=== PATIENT | female | born 1945 | race Caucasian/White ===

== ENCOUNTER 2016-12-09 02:33 | Observation (INO) ==
--- NOTE | 2016-12-09 03:14 | Emergency Department Note ---
Disposition Clinical Impression: Hypertension, Unsteady gait, Vertigo, Chest pain Disposition: Admitted As Inpatient Condition: Fair Time of Disposition: 05:51 Dizziness HPI - General Chief Complaint: ED General Medical Stated Complaint: dizziness Time Seen by Provider: 12/09/16 02:41 Source: patient Mode of arrival: ambulatory Limitations: no limitations Nursing Notes Reviewed: Yes Vital Signs Reviewed: Yes - History of Present Illness HPI Narrative: Patient presents to the ED with the chief complaint of dizziness. Patient reports that for the last 2 weeks she has been having dizziness. She states that she has had dizziness before and was prescribed Antivert with good relief. States she has not needed any in a while. Reports that her blood pressure has been running high lately with the systolic pressure being in the 160s. She went to refill her lisinopril last week and the pharmacist checked her blood pressure and it was elevated at 160/90. They ended up calling her primary care physician who increased her lisinopril to 20 mg daily. She states her blood pressures have now been in the 130s in the 140s. She reports that she is still been getting dizzy spells where she feels like she is going to pass out and also the room is spinning. States it happens whenever she moves her head too quickly or when she lays down too fast. She reports tonight she laid down and started feeling a very intense spinning sensation. She states that this made her very nervous and she got up and checked her blood pressure and it was in the 140s. She then states that she started developing some left superior anterior chest tightness that radiated into her left scapular area that has been intermittent since then. She did get nauseated but had no vomiting, or changes in vision. No headache or fever. No rash. No shortness of breath. She does report some perioral numbness, but states she is had that before and is gone now. - Related Data Home Medications Medication Instructions Recorded Confirmed Aspirin [Adult Low Dose Aspirin EC] 81 mg PO 06/20/15 LORazepam [Ativan] 1 mg PO HS 06/20/15 06/21/15 Lisinopril-HCTZ 10-12.5 [Prinzide 1 each PO 06/20/15 10-12.5] Simvastatin [Zocor] 40 mg PO 06/20/15 Allergies Allergy/AdvReac Type Severity Reaction Status Date / Time No Known Allergies Allergy Verified 06/20/15 20:20 Constitutional: Denies: fever Eyes: Denies: vision change ENT ED: Denies: throat pain Cardiovascular: Reports: chest pain Gastrointestinal: Reports: nausea Integumentary: Denies: rash Neurological: Reports: numbness, vertigo. Denies: headache Psychiatric: Reports: anxiety Past Medical History - Past Medical History Attestation: Yes The following information was validated with the patient. Source: patient Medical history: Reports: hypertension, TIA Surgical history: Reports: angioplasty/stent (in 2005 or 2006, no stent placed.) , appendectomy, cholecystectomy, other (Lung biopsy 2003 (questionable diagnosis of histoplasmosis), right neck mass surgery (for schwannoma)) Psychiatric history: Reports: anxiety - Social History Smoking Status: Never smoker Smokeless Tobacco Status: No Alcohol use: Reports: none Drug use: Reports: none Physical Exam - General Limitations: no limitations General appearance: alert, in no apparent distress - Head Head exam: atraumatic, normocephalic, normal inspection - Eye Eye exam: Present: normal appearance, PERRL, EOMI - ENT ENT exam: normal exam, normal oropharynx, mucous membranes moist - Neck Neck exam: Present: normal inspection, full ROM, trachea midline - Chest Chest inspection: Present: normal inspection, symmetric chest wall rise - Respiratory Respiratory exam: Present: normal lung sounds bilaterally - Cardiovascular Cardiovascular exam: Present: regular rate, normal rhythm, normal heart sounds - Abdominal Exam Abdominal exam: Present: soft, Non-Tender. Absent: tenderness, distention, guarding, rebound, rigidity - Extremities Exam Extremities exam: Present: normal inspection, full ROM. Absent: tenderness, pedal edema - Neurological Exam Neurological exam: Present: alert, oriented X3, CN II-XII intact. Absent: normal gait (unsteady) - Expanded Neurological Exam Patient oriented to: Present: person, place, time Speech: Present: fluid speech Cranial nerves: EOM function (II, III, IV, ): Normal, facial sensation (V): Normal, facial palsy (VII): Normal, spinal accessory function (XI): Normal, tongue deviation (XII): Normal Cerebellar function: normal gait Motor strength - LUE: 5/5 Motor strength - RUE: 5/5 Motor strength - LLE: 5/5 Motor strength - RLE: 5/5 Upper motor neuron exam: farheen neglect: Absent bilaterally Sensory exam upper extremity: light touch: Normal Sensory exam lower extremity: light touch: Normal Coma Scale Eye Opening: Spontaneous Coma Scale Motor Response: Obeys Commands Coma Scale Verbal Response: Oriented Coma Scale Total: 15 - Psychiatric Psychiatric exam: Present: normal affect, normal mood - Skin Skin exam: Present: warm, dry, intact, normal color Course - Reevaluation(s) Reevaluation #1: Patient's lab work is unremarkable. CT is normal. However, when patient got up to go the bathroom should have very unsteady gait. She was walking and seemed to be falling to either side. States that she felt dizzy at that time. We medicated her and that seemed to help, but every time she seems a try to ambulate. She has these issues. We will admit her to the hospitalist service for an MRI, MRA to rule out posterior circulation issues. Vital Signs Temperature 97.6 F 12/09/16 02:33 Pulse Rate 72 12/09/16 02:33 Respiratory Rate 18 12/09/16 02:33 Blood Pressure 187/102 12/09/16 02:33 O2 Sat by Pulse Oximetry 96 12/09/16 02:33 Temperature 97.6 F 12/09/16 06:25 Pulse Rate 72 12/09/16 06:28 Respiratory Rate 17 12/09/16 06:25 Blood Pressure 178/87 12/09/16 06:28 O2 Sat by Pulse Oximetry 98 12/09/16 06:25 Oxygen Delivery Oxygen Delivery Room Air Dizziness - Medical Records Medical records reviewed: Yes I reviewed the patient's medical records. - Lab Data Lab results reviewed: Yes I reviewed the patient's lab results. Result diagrams: 12/09/16 03:30 12/09/16 03:30 Lab Results 12/09/16 12/09/16 12/09/16 Range/Units 03:30 03:30 03:30 WBC 4.2 L (4.3-11.1) K/mcL RBC 4.14 (3.82-4.97) M/mcL Hgb 12.4 (11.5-15.4) g/dL Hct 36.7 (35.3-44.9) % MCV 88.6 (83.0-100.0) fL MCH 30.0 (28.0-33.3) pg MCHC 33.8 (31.6-35.5) g/dL RDW 12.9 (11.5-14.5) % Plt Count 199 (140-400) K/mcL MPV 9.5 (9.4-12.4) fL Immature Gran % 0.2 (0-4) % Seg Neutrophils % 71.3 % Lymphocytes % 19.7 % Monocytes % 6.2 % Eosinophils % 2.1 % Basophils % 0.5 % Neutrophils # 3.0 (1.6-8.9) K/mcL Lymphocytes # 0.8 (0.6-4.6) K/mcL Monocytes # 0.3 (0.0-1.3) K/mcL Eosinophils # 0.1 (0.0-0.6) K/mcL Basophils # 0.0 (0.0-0.2) K/mcL Immature Plt Fraction 3.0 (1.1-6.1) % Sodium 138 (136-145) mEq/L Potassium 3.5 (3.5-4.5) mEq/L Chloride 107 (98-109) mEq/L Carbon Dioxide 24 (19-29) mEq/L BUN 11 (7-20) mg/dL Creatinine 0.76 (0.57-1.11) mg/dL Est GFR ( Amer) > 60 (> 60) Est GFR (Non-Af Amer) > 60 (> 60) BUN/Creatinine Ratio 14 (6-26) Glucose 91 (70-99) mg/dL Calculated Osmolality 285 (280-300) Calcium 9.4 (8.6-10.8) mg/dL Troponin I 0.00 (0-0.03) ng/mL Urine Color (Yellow) Urine Clarity (Clear) Urine pH (5.0-8.0) pH Units Ur Specific Harper (1.010-1.025) Urine Protein (Neg-Trace) mg/dL Urine Glucose (UA) (Normal) mg/dL Urine Ketones (Negative) mg/dL Urine Blood (Negative) Urine Nitrite (Negative) Urine Bilirubin (Negative) Urine Urobilinogen (Normal) mg/dL Ur Leukocyte Esterase (Negative) Ur Culture Indicated? (NO) 12/09/16 Range/Units 04:50 WBC (4.3-11.1) K/mcL RBC (3.82-4.97) M/mcL Hgb (11.5-15.4) g/dL Hct (35.3-44.9) % MCV (83.0-100.0) fL MCH (28.0-33.3) pg MCHC (31.6-35.5) g/dL RDW (11.5-14.5) % Plt Count (140-400) K/mcL MPV (9.4-12.4) fL Immature Gran % (0-4) % Seg Neutrophils % % Lymphocytes % % Monocytes % % Eosinophils % % Basophils % % Neutrophils # (1.6-8.9) K/mcL Lymphocytes # (0.6-4.6) K/mcL Monocytes # (0.0-1.3) K/mcL Eosinophils # (0.0-0.6) K/mcL Basophils # (0.0-0.2) K/mcL Immature Plt Fraction (1.1-6.1) % Sodium (136-145) mEq/L Potassium (3.5-4.5) mEq/L Chloride (98-109) mEq/L Carbon Dioxide (19-29) mEq/L BUN (7-20) mg/dL Creatinine (0.57-1.11) mg/dL Est GFR ( Amer) (> 60) Est GFR (Non-Af Amer) (> 60) BUN/Creatinine Ratio (6-26) Glucose (70-99) mg/dL Calculated Osmolality (280-300) Calcium (8.6-10.8) mg/dL Troponin I (0-0.03) ng/mL Urine Color Yellow (Yellow) Urine Clarity Clear (Clear) Urine pH 6.0 (5.0-8.0) pH Units Ur Specific Harper 1.005 L (1.010-1.025) Urine Protein Negative (Neg-Trace) mg/dL Urine Glucose (UA) Normal (Normal) mg/dL Urine Ketones Negative (Negative) mg/dL Urine Blood Negative (Negative) Urine Nitrite Negative (Negative) Urine Bilirubin Negative (Negative) Urine Urobilinogen Normal (Normal) mg/dL Ur Leukocyte Esterase Negative (Negative) Ur Culture Indicated? NO (NO) - Radiology Data Radiology results reviewed: Yes I reviewed the patient's radiology results. - EKG Data EKG attestation: Yes I reviewed and interpreted this EKG. EKG results narrative: Sinus rhythm, rate 62, MN interval 170, QRS 101, QTc 421, left axis deviation, no acute ischemic changes Angela - Angela Situation: Demographics, MOA Background: Presenting Complaint, Relevant PMH, Meds, & Allergies Assessment: Vital Signs, Course and respsone to treatment, Exam Concerns, Patient/Family Expectation, Pertinant Lab Results, Outstanding Labs Recommendation: Recommendation based on pending studies, treatments, or consults SFernando Report Given to: Dr. Tara Miller Repor Time: 05:49 Attestation Statement - Attestation Attestation: I, Hung Ramsey, examined this patient and my medical decision-making was reviewed with the MARKETING AUTOMATION ANALYST/PA/Advanced Practice Nurse/Resident Physician. I agree with the documented findings, disposition and treatment plan as described except to the extent set forth below. 71-year-old female presents with concerns of dizziness. Patient describes her symptoms as vertiginous with room spinning with movement of her head. She states her symptoms will improve after a period of about 5 minutes of keeping her head still. Patient had similar occurrence to this multiple years ago however she is unsure what was the cause of her symptoms. No recent changes in her medications other than increasing her lisinopril for elevated blood pressure. Patient states symptoms started about 5 days ago and have not improved otherwise. She states she is unable to ambulate secondary to unsteadiness of gait. Patient given meclizine and Reglan in the emergency department with minimal improvement of her symptoms. Patient also states that she was near syncopal today however she denies syncope, nausea, vomiting, diarrhea or chest pain or palpitations. Negative initial troponin. EKG showed normal sinus rhythm with a rate of 62 without evidence of STEMI. Patient will be admitted to the hospital for further care and evaluation of near syncope with vertigo.
[2016-12-09 03:39] LABS: Basophils % 0.5 %; Eosinophils # 0.1 K/mcL (0.0-0.6); Eosinophils % 2.1 %; Hematocrit 36.7 % (35.3-44.9); Hemoglobin 12.4 g/dL (11.5-15.4); Immature Granulocytes % 0.2 % (0-4); Lymphocytes # 0.8 K/mcL (0.6-4.6); Lymphocytes % 19.7 %; Mean Corpuscular HGB Conc 33.8 g/dL (31.6-35.5); Mean Corpuscular Volume 88.6 fL (83.0-100.0); Mean Platelet Volume 9.5 fL (9.4-12.4); Monocytes # 0.3 K/mcL (0.0-1.3); Monocytes % 6.2 %; Platelet Count 199 K/mcL (140-400); Red Blood Count 4.14 M/mcL (3.82-4.97); Red Cell Distribution Width 12.9 % (11.5-14.5); Segmented Neutrophils % 71.3 %
[2016-12-09 03:48] LABS: BUN/Creatinine Ratio 14 (6-26); Blood Urea Nitrogen 11 mg/dL (7-20); Calcium 9.4 mg/dL (8.6-10.8); Carbon Dioxide 24 mEq/L (19-29); Chloride 107 mEq/L (98-109); Glucose 91 mg/dL (70-99); Osmolality,Calculated 285 (280-300); Potassium 3.5 mEq/L (3.5-4.5); Sodium 138 mEq/L (136-145); eGFR For African Americans > 60 (> 60); eGFR For Non-African Americans > 60 (> 60)
[2016-12-09] MEDS: 0.9 % Sodium Chloride 1,000 ML IVC SCH ×2 (03:52→14:12)
[2016-12-09] MEDS ORDERED: Metoclopramide 10 MG/2 ML VIAL IVP ONE (04:34)
[2016-12-09 05:14] LABS: Bilirubin,Urine Negative (Negative); Blood,Urine Negative (Negative); Clarity,Urine Clear (Clear); Color,Urine Yellow (Yellow); Glucose,Urine (UA) Normal (Normal); Ketones,Urine Negative (Negative); Leukocyte Esterase,Urine Negative (Negative); Nitrite,Urine Negative (Negative); Protein,Urine Negative (Neg-Trace); Specific Gravity,Urine 1.005 (1.010-1.025); Urobilinogen,Urine Normal (Normal)
[2016-12-09] MEDS ORDERED: Acetaminophen 325 MG TABLET PO PRN (09:02)
[2016-12-09] MEDS ORDERED: Ondansetron 4 MG/2 ML VIAL IVP PRN (09:02)
[2016-12-09] MEDS ORDERED: Naloxone 0.4 MG/ML INJ IVP PRN (09:02)
--- NOTE | 2016-12-09 10:07 | Electrocardiograph Report ---
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
[2016-12-09] MEDS: Lisinopril 20 MG TABLET PO SCH (11:24)
[2016-12-09] MEDS: Aspirin Enteric Coated 81 MG Tablet PO SCH (11:25)
--- NOTE | 2016-12-09 13:48 | Internal Med History&Physical ---
Date of Encounter: 12/09/16 Time of Encounter: 08:45 Assessment and Plan (1) Vertigo Current visit: Yes Status: Acute Presentation is more consistent with vertigo, possible vestibular neuronitis versus posterior CVA. CT head done in the emergency room shows no evidence of acute infarct. Will check MRI brain. Consider ENT consult and trial of steroids if warranted. Continue supportive care with when necessary medication , fall precautions. (2) Unsteady gait Current visit: Yes Status: Acute Due to vertigo and dizziness. Fall precautions. (3) Hypertension Current visit: Yes Status: Chronic Blood pressure noted to be well controlled in the emergency room. Continue home medications. Qualifiers: Hypertension type: essential hypertension Qualified Code(s): I10 - Essential (primary) hypertension (4) Hyperlipidemia Current visit: Yes Status: Chronic Qualifiers: Hyperlipidemia type: unspecified Qualified Code(s): E78.5 - Hyperlipidemia , unspecified Internal Medicine - H&P: HPI Chief complaint: Dizziness Admitted From: Emergency Dept Plans for Post Hospital Care: Home History of present illness: Ms. Solis is a 71 year old female with h/o- HTN, TIA who presents with c/o- sudden onset of dizziness that started about 4-5 days ago while she was watching TV and got up from her couch. SHe reports intermittent episodes of significant dizziness, associated with vertigo-like sensation like room spinning around her, nausea and unsteady gait. Her symptoms are aggravated by getting up from supine position or lying down completely flat. SHe has no focal weakness or paresthesias. No headache, blurred vision, nystagmus, earache but does have chronic tinnitus. No recent falls. No recent upper respiratory infections. She also reports uncontrolled BP at home, which has been doing better recently. Her PCP took her off of diuretics as it could cause dizziness. No prior similar episodes. Past Med Surg Social Fam HX - Past Medical History Medical history: hyperlipidemia, hypertension, TIA Psychiatric history: anxiety - Past Surgical History Surgical History: angioplasty/stent (in 2005 or 2006, no stent placed.), appendectomy, cholecystectomy, other (Lung biopsy 2003 (questionable diagnosis of histoplasmosis), right neck mass surgery (for schwannoma)) - Social History Smoking Status: Never smoker Smokeless Tobacco Status: No Alcohol use: none Drug use: none Current living situation: Home, With Family Activity Level: Independent ambulation Recent Out of Country Travel Within the Last 8 Weeks: No - Family History Mother Adopted: Yes Living Status: Internal Medicine - H&P: Meds Aspirin [Adult Low Dose Aspirin EC] 81 mg PO DAILY 06/20/15 [History] LORazepam [Ativan] 1 mg PO BID 06/20/15 [History] Simvastatin [Zocor] 40 mg PO DAILY 06/20/15 [History] Cholecalciferol (D-3) [Vitamin D] 1,000 unit PO DAILY 12/09/16 [History] Lisinopril [Zestril] 20 mg PO DAILY 12/09/16 [History] Ranitidine HCl [Zantac] 150 mg PO DAILY PRN 12/09/16 [History] Allergies No Known Allergies Allergy (Verified 06/20/15 20:20) All Systems PM: A 10-system review of systems was performed and is negative for pertinent findings except as documented above in the HPI. - Constitutional Constitutional: no chills, no fever(s), no night sweats - EENT Eyes: no change in vision, no discharge, no pain, no photophobia Ears: no ear discharge, no ear pain, no tinnitus Nose, mouth and throat: no dysphagia, no nasal discharge, no neck pain, no sore throat - Cardiovascular Cardiovascular ROS IM: lightheadedness, no chest pain, no diaphoresis, no dyspnea, no palpitations, no syncope - Respiratory Respiratory: no cough, no dyspnea, no wheezing, no excessive phlegm production - Gastrointestinal Gastrointestinal: no abdominal pain, no diarrhea, no hematemesis, no hematochezia, no melena, no nausea, no vomiting - Genitourinary Genitourinary: no change in urinary stream, no dysuria, no flank pain, no hematuria - Musculoskeletal Musculoskeletal ROS IM: no numbness, no tingling - Integumentary Integumentary IM: no rash, no unusual bruising - Neurological Neurological ROS: abnormal gait, disequilibrium, dizziness - Constitutional Vitals: Temp Pulse Resp BP Pulse Ox 97.4 F L 67 16 145/87 97 12/09/16 11:16 12/09/16 11:16 12/09/16 11:16 12/09/16 11:16 12/09/16 11:16 General appearance: Present: A&O X 3, answers questions appropriately - Eye Eye exam: Present: nystagmus (no nystagmus; Ignacio Hallpike negative), PERRL, conjuntiva pink, sclera anicteric Pupils: Present: PERRL Additional comments: left partial ptosis - Respiratory Respiratory exam: Present: CTAB. Absent: accessory muscle use, rales, rhonchi, wheezes - Cardiovascular Cardiovascular exam: Present: RRR, +S1, +S2. Absent: diastolic murmur, gallop, rubs, systolic murmur - GI/Abdominal GI/Abdominal exam: Present: normal bowel sounds, soft, no peritoneal signs. Absent: distended, tenderness - Extremities Exam Extremities exam: Present: full ROM, warm, radial pulses palpable and symetrical. Absent: calf tenderness, cyanotic, pedal edema - Neurological Exam Neurological exam: Present: CN II-XII intact, oriented X3, no focal deficits. Absent: pronater drift, facial droop, speech deficit - Skin Skin exam: Present: dry, intact Internal Med - H&P Results - Labs CBC & Chem 7: 12/09/16 03:30 12/09/16 03:30 Labs: Cardiac Enzymes 12/09/16 Range/Units 09:39 Troponin I 0.00 (0-0.03) ng/mL
[2016-12-09] MEDS: predniSONE 20 MG TABLET PO SCH (16:59)
--- NOTE | 2016-12-09 19:15 | Neurology - Consult Note ---
Date of Encounter: 12/09/16 Time of Encounter: 19:10 Assessment and Plan (1) Vertigo Current Visit: Yes Status: Acute Episodic, vertiginous feeling lasting few minutes in duration usually provoked by laying down in flat position, sometimes reproducible in a patient with chronic tinnitus would be consistent with diagnosis of BPPV/vestibular dysfunction. Currently i saw no significant nystagmus when patient has no symptoms. 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 She does mention about the transient luis oral paresthesia, due to this symptom i would suggest that we obtain MRA of brain/neck to assess VBI or carotid artery stenosis. If the study returns negative patient can be discharged tomorrow. Been taking Antivert in the past. Would consider 2 weeks course of Zntivert 12.5mg bid. Two weeks course only. Recommend VNG with ENT as outpatient. Also should consider vestibular rehabilitation with [facility]. Please continue medical and supportive care. (2) VBI (vertebrobasilar insufficiency) Current Visit: Yes Status: Acute This is less likely. But due to presence of prolonged vertigo and facial paresthesia, will obtain MRA of brain/neck to assess intracranial atherosclerosis, and possible VBI History of Present Illness Chief complaint: dizziness HPI: Ms. Solis is a 71 year old female with PMH significant for HTN, hyperlipidemia , history of chronic tinnitus who developed increasing episodes of vertigo, worsened Since last Wednesday. Describes vertiginous feeling, lasting less than few minutes in duration, usually provoked by laying down and ameliorated by keep still and sitting up. Initially episodes are intermittent but it came more persistent in the last few days and can be associated with nausea and also she developed luis-oral numbness which caused concern. MRI of brain completed and showed no acute infarct. Has had chronic tinnitus bilaterally for few years. Has seen ENT specialist who checked her hearing and told her she got some hearing loss and not much can be done to her tinnitus. Past Med Surg Social Fam HX - Past Medical History Medical history: hyperlipidemia, hypertension, TIA Psychiatric history: anxiety - Past Surgical History Surgical History: angioplasty/stent (in 2005 or 2006, no stent placed.), appendectomy, cholecystectomy, other (Lung biopsy 2003 (questionable diagnosis of histoplasmosis), right neck mass surgery (for schwannoma)) - Social History Smoking Status: Never smoker Smokeless Tobacco Status: No Alcohol use: none Drug use: none - Family History Mother Adopted: Yes Living Status: Medications and Allergies Aspirin [Adult Low Dose Aspirin EC] 81 mg PO DAILY 06/20/15 [History] LORazepam [Ativan] 1 mg PO BID 06/20/15 [History] Simvastatin [Zocor] 40 mg PO DAILY 06/20/15 [History] Cholecalciferol (D-3) [Vitamin D] 1,000 unit PO DAILY 12/09/16 [History] Lisinopril [Zestril] 20 mg PO DAILY 12/09/16 [History] Ranitidine HCl [Zantac] 150 mg PO DAILY PRN 12/09/16 [History] Allergies No Known Allergies Allergy (Verified 06/20/15 20:20) All Systems: A 10-system review of systems was performed and is negative for pertinent findings except as documented above in the HPI. Physical Examination - Vital Signs Vital Signs: Initial Vital Signs Temp Pulse Resp BP Pulse Ox 97.6 F 72 18 187/102 96 12/09/16 02:33 12/09/16 02:33 12/09/16 02:33 12/09/16 02:33 12/09/16 02:33 - Constitutional General appearance: comfortable - Neurologic Sensorimotor examination: intact Detailed motor examination: grossly full strength in all extremities Motor examination - right side: 5/5: deltoids, biceps, triceps, wrist flexion, wrist extension, director information security, hip flexors, tibialis Anterior, quadriceps, toe extension (EHL), plantarflexion Motor examination - left side: 5/5: deltoids, biceps, triceps, wrist flexion, wrist extension, hip flexors, director information security, quadriceps, tibialis Anterior, toe extension (EHL), plantarflexion Detailed sensory examination: intact Reflex and gait examination: intact Reflexes: Biceps: 2+, Triceps: 2+, Brachioradialis: 2+, Patella: 2+, Achilles: 2 + Mental Status Examination: awake, alert, oriented to person, oriented to place, oriented to time, follows commands appropriately, answers questions appropriately, no agnosia, no aphasia, no aproxia Cranial nerve examination: PERRL (smaller pupil to the right side with ptosis noted. This is chronic finding, secondary to neck tumor resection), EOMI (No nystagmus seen), visual madrigal intact, corneal reflexes brisk symmetrically, sensory to face intact, mastication intact, no facial asymmetry is present ( right ptosis noted), no dysarthria, hearing is intact symmetrically, soft palate elevates bilaterally upon phonation, gag reflex intact, flexes SCM and trapezius muscles symmetrically with full power, tongue protrudes midline Results - Laboratory Findings CBC and BMP: 12/09/16 03:30 12/09/16 03:30 Abnormal lab findings: Abnormal lab results WBC 4.2 K/mcL (4.3-11.1) L 12/09/16 03:30 Ur Specific [place] 1.005 (1.010-1.025) L 12/09/16 04:50 Consult Discharge Plan - Plan Referrals: Mary Paul MD [Primary Care Provider] - 12/16/16 10:00 am
[2016-12-09] MEDS: *HR* LORazepam 1 MG TABLET PO SCH (19:57)
[2016-12-10] MEDS: 0.9 % Sodium Chloride 1,000 ML IVC SCH ×2 (05:50→09:30)
[2016-12-10 06:54] LABS: Basophils % 0.3 %; Hematocrit 35.7 % (35.3-44.9); Immature Granulocytes % 0.3 % (0-4); Lymphocytes # 0.6 K/mcL (0.6-4.6); Lymphocytes % 17.6 %; Mean Corpuscular HGB Conc 33.6 g/dL (31.6-35.5); Mean Corpuscular Hemoglobin 29.9 pg (28.0-33.3); Mean Platelet Volume 10.4 fL (9.4-12.4); Monocytes # 0.1 K/mcL (0.0-1.3); Monocytes % 1.7 %; Neutrophils # 2.8 K/mcL (1.6-8.9); Platelet Count 183 K/mcL (140-400); Red Blood Count 4.01 M/mcL (3.82-4.97); Segmented Neutrophils % 80.1 %
[2016-12-10 07:00] LABS: BUN/Creatinine Ratio 18 (6-26); Blood Urea Nitrogen 14 mg/dL (7-20); Calcium 9.1 mg/dL (8.6-10.8); Carbon Dioxide 21 mEq/L (19-29); Chloride 113 mEq/L (98-109); Glucose 139 mg/dL (70-99); Osmolality,Calculated 293 (280-300); Sodium 140 mEq/L (136-145); eGFR For African Americans > 60 (> 60); eGFR For Non-African Americans > 60 (> 60)
[2016-12-10] MEDS: Lisinopril 20 MG TABLET PO SCH (09:32)
[2016-12-10] MEDS: predniSONE 20 MG TABLET PO SCH (09:32)
[2016-12-10] MEDS: Aspirin Enteric Coated 81 MG Tablet PO SCH (09:32)
[2016-12-10] MEDS: *HR* LORazepam 1 MG TABLET PO SCH (09:32)
[2016-12-10 15:50] VITALS: BP 134/78
--- NOTE | 2016-12-10 16:30 | Discharge Summary ---
Date of Encounter: 12/10/16 Time of Encounter: 10:30 (and 1600) - Discharge Diagnosis (1) Vertigo Priority: Primary Status: Acute Comments: improved with Antivert. acute cva ruled out. sending to vestibular rehab (2) BPPV (benign paroxysmal positional vertigo) Priority: Primary Status: Suspected (3) Unsteady gait Priority: Primary Status: Resolved (4) VBI (vertebrobasilar insufficiency) Priority: Primary Status: Ruled-out (5) Hypertension Priority: Secondary Status: Chronic Comments: Controlled, follow-up outpatient Qualifiers: Hypertension type: essential hypertension Qualified Code(s): I10 - Essential (primary) hypertension (6) DVT prophylaxis Priority: Primary Status: Acute Comments: Observation patient. (7) Anxiety Priority: Secondary Status: Chronic - Discharge Medications Prescriptions: Meclizine [Antivert] 12.5 - 25 mg PO TID PRN #30 tab PRN Reason: Dizziness predniSONE [PredniSONE] 60 mg PO DAILY #12 tab Home Medications: Aspirin [Adult Low Dose Aspirin EC] 81 mg PO DAILY 06/20/15 [History] LORazepam [Ativan] 1 mg PO BID 06/20/15 [History] Simvastatin [Zocor] 40 mg PO DAILY 06/20/15 [History] Cholecalciferol (D-3) [Vitamin D] 1,000 unit PO DAILY 12/09/16 [History] Lisinopril [Zestril] 20 mg PO DAILY 12/09/16 [History] Ranitidine HCl [Zantac] 150 mg PO DAILY PRN 12/09/16 [History] Meclizine [Antivert] 12.5 - 25 mg PO TID PRN #30 tab 12/10/16 [Rx] predniSONE [PredniSONE] 60 mg PO DAILY #12 tab 12/10/16 [Rx] Allergies/Adverse Reactions: Allergies No Known Allergies Allergy (Verified 06/20/15 20:20) Procedures/tests Complete & Pending: Procedures Performed prior 72 hours Category Date Time Status MR angio head wo con [MR] Routine MRI 12/09/16 19:30 Completed MR angio neck wo con [MR] Routine MRI 12/09/16 19:30 Completed Date of admission: 12/09/16 05:54 Primary care physician: Mary Mckeon Consults: 12/09/16 15:52 Consult to Neurology [CONS] Routine Consulting Provider: [facility] Reason for Consult: Dizziness, ataxia Call Completed: Yes Discharging clinician: Adriane Angel Anticipated date of discharge: 12/10/16 - Patient Status Disposition: Home, Self-Care Condition: Good Functional capacity at discharge: independent ambulation Overall status at discharge: patient is progressing back to baseline - Discharge Instructions Follow Up With: Jacinta Franco [Wild Life Photographer] - 12/18/16 8:00 am Desmond Sneed PT [Physical Therapist] - 12/23/16 8:30 am Mary Paul MD [Primary Care Provider] - 12/16/16 10:00 am Ivelisse Duckworth DO [Non-Partnered Physician] - Additional Instructions: Follow-up as scheduled - Diet and Activity Activity: as per physical therapy, increase activity as tolerated Diet: low fat, low cholesterol, low salt diet Hospital course: Ms. Solis is a 71 year old female with past medical history of hypertension, hyperlipidemia, TIA. Patient presented to the emergency department chief complaint of sudden onset of dizziness that started approximately 4-5 days prior to presentation while she was watching TV and when she got up from her couch. Patient stating she has had intermittent episodes of significant dizziness and associated with vertigo-like sensation of the room spinning around her as well as nausea and an unsteady gait. Patient's symptoms were aggravated by getting up from a supine position or lying down completely flat. She denied any focal neurological weaknesses or paresthesias. She denied headache, vision changes, or earaches. She does endorse chronic tendinitis that she states have been present since 2008. Workup in the emergency department unremarkable. Chest x-ray negative. Head CT negative. Patient was admitted to the hospitalist service for further evaluation and management. Neurology was brought on board. Brain MRI negative for acute processes. Head and neck MRA also obtained which was also unremarkable. Patient's symptoms improved with Antivert and she was able to tolerate a regular diet and ambulate prior to discharge. In further discussion with the patient, she states that she has seen an ENT doctor in [place] who has since retired (a male doctor [place]). She states she has been followed by ear nose and throat since 2008 when her tendinitis first started but she states after her ENT doctor retired, though she did not pursue any further workup. Given her lengthy history, strongly recommend vestibular rehabilitation as well as vestibular functioning tests, prescriptions have been written. She was discharged home in stable condition with close outpatient follow-up recommended. She was instructed not to drive until she is asymptomatic. ITS Impressions Chest X-Ray 12/09/16 02:49 IMPRESSION: The study is limited due to low lung volumes/hypoventilation. There are bibasilar opacities that could represent atelectasis or consolidation. D/ / 12/09/2016 07:23:56 Vince Moya MD / cathryn Interpreting Provider: Vince Moya MD Head CT 12/09/16 02:49 IMPRESSION: No acute intracranial abnormality. D/ / Vince Moya MD / Vince Moya MD Interpreting Provider: Vince Moya MD Brain MRI 12/09/16 05:52 IMPRESSION: 1. No acute infarct or acute intracranial process identified. 2. Mild chronic small vessel ischemic changes. D/ / Jose Banks MD / Jose Banks MD Interpreting Provider: Jose Banks MD Head MRA 12/09/16 19:30 IMPRESSION: No flow limiting stenosis or branch occlusion identified within the head or neck. D/ / Shakir Chandler MD / Shakir Chandler MD Interpreting Provider: Shakir Chandler MD Neck MRA 12/09/16 19:30 IMPRESSION: No flow limiting stenosis or branch occlusion identified within the head or neck. D/ / Shakir Chandler MD / Shakir Chandler MD Interpreting Provider: Shakir Chandler MD - Time Spent with Patient Total time spent providing and/or coordinating discharge services: - Constitutional Vitals: Temp Pulse Resp BP Pulse Ox 98.1 F 87 18 134/78 94 12/10/16 15:48 12/10/16 15:48 12/10/16 15:48 12/10/16 15:48 12/10/16 15:48 General appearance: Present: A&O X 3, pleasant, no acute distress, answers questions appropriately - Head Head exam: Present: atraumatic, normocephalic - Eye Eye exam: Present: PERRL, conjuntiva pink, sclera anicteric Pupils: Present: PERRL - Neck Neck exam general surgery: Present: supple, trachea midline. Absent: lymphadenopathy - Respiratory Respiratory exam: Present: CTAB. Absent: accessory muscle use, rales, respiratory distress, rhonchi, wheezes - Cardiovascular Cardiovascular exam: Present: RRR, +S1, +S2. Absent: diastolic murmur, gallop, rubs, systolic murmur - GI/Abdominal GI/Abdominal exam: Present: normal bowel sounds, soft, no peritoneal signs. Absent: distended, tenderness - Extremities Exam Extremities exam: Present: warm, radial pulses palpable and symetrical. Absent : calf tenderness, cyanotic, pedal edema - Neurological Exam Neurological exam: Present: alert, CN II-XII intact, normal gait, oriented X3, no focal deficits, strengths equal and symetr throughout. Absent: pronater drift, facial droop, speech deficit - Skin Skin exam: Present: dry, intact, normal color, warm
== END 2016-12-10 18:12 | disposition home or self-care (01) ==
LOC: EMEROO 02:33 → 3BNU 02:33
PROVIDERS: ADMIT Pediatrics; ATTEND Nurse Practitioner Family